=== PATIENT | male | born 1955 | race Caucasian/White ===

== ENCOUNTER 2016-07-15 20:49 | Inpatient (IN) | payer MEDICAID ==
[~2016-07-15] VITALS: Ht 177.8 cm; Wt 81.6 kg
[~2016-07-15 20:49] MED LIST: BUDE10.22 IH; CLOP75TA PO; GABA-586 PO; INSU100V8 SQ; METF-620 PO; METO25TA4 PO; NPH,100I3 SQ; OMEP20CA9 PO; SERT25TA PO; TAMS0.4C97 PO
[2016-07-15 21:06] LABS: BASO # 0.1 x10^3/uL (0.0-0.2); BASO % 1 % (0-3); EOS % 6 % (0-3); HEMATOCRIT 38.5 % (39.0-53.0); HEMOGLOBIN 12.4 g/dL (13.0-17.5); LYMPH # 2.9 x10^3/uL (1.0-4.8); LYMPH % 42 % (24-48); MEAN CORPUSCULAR HEMOGLOBIN 27 pg (25-35); MEAN CORPUSCULAR HGB CONC 32 g/dL (31-37); MEAN CORPUSCULAR VOLUME 83 fL (79-100); MONO % 6 % (0-9); NEUT % 46 % (31-73); PLATELET COUNT 439 x10^3/uL (140-400); RED BLOOD COUNT 4.65 x10^6/uL (4.30-5.70); RED CELL DISTRIBUTION WIDTH 15.7 % (11.5-14.5); WHITE BLOOD COUNT 6.9 x10^3/uL (4.0-11.0)
[2016-07-15 21:23] LABS: ALBUMIN 3.1 g/dL (3.4-5.0); CREATININE 0.9 mg/dL (0.7-1.3); DIRECT BILIRUBIN 0.1 mg/dL (0.0-0.2); GFR 85.8; POTASSIUM 4.1 mmol/L (3.5-5.1); TOTAL BILIRUBIN 0.1 mg/dL (0.2-1.0); TOTAL PROTEIN 7.3 g/dL (6.4-8.2)
[2016-07-15] MEDS ORDERED: MORPHINE SULFATE 4 MG/ML DISP.SYRIN. ONE (21:37)
[2016-07-15] MEDS: MORPHINE SULFATE 4 MG/ML DISP.SYRIN. IV/SQ PRN ×4 (21:40→22:34)
[2016-07-15] MEDS ORDERED: ONDANSETRON PF 4 MG/2 ML VIAL. IV ONE (22:00)
[2016-07-15] MEDS ORDERED: ONDANSETRON PF 4 MG/2 ML VIAL. IV PRN (22:45)
[2016-07-15] MEDS ORDERED: ACETAMINOPHEN 325 MG TABLET. PO PRN (22:45)
[2016-07-15] MEDS ORDERED: DEXTROSE 50% 25 GM / 50ML DISP.SYRIN. IV PRN (22:45)
[2016-07-15] MEDS: MORPHINE SULFATE 4 MG/ML DISP.SYRIN. IV PRN (23:28)
[2016-07-15] MEDS ORDERED: ANTI-COAG MONITOR BY PHARMACY. MC PRN (23:45)
[2016-07-16 00:03] VITALS: BP 124/78
--- NOTE | 2016-07-16 00:09 | ED.ADGEN ---
Past Medical History Past Medical History: CHF, CVA, Diabetes-Type II, Hypertension, [place] Past Surgical History: Angioplasty Additional Past Surgical Histo: Left ankle, exploritory abd, cardiac stent Alcohol Use: None Drug Use: None Adult General Chief Complaint Chief Complaint: CHEST PAIN HPI HPI Patient is a 60 year old man, history of CHF, CAD status post stent placement in 2007, hypertension, hyperlipidemia, type 2 diabetes mellitus, who presents emergency Department with a complaint of sudden onset of left-sided chest pain radiating into his arm and jaw that began about 15 minutes prior to arrival in the emergency department. Patient states that he was shopping in a nearby store , when he began expressing chest pain. He is brought via EMS to the emergency department for evaluation. He states his last stress test and catheterization was 10 years ago. He states that he did take aspirin prior to coming to the ED, he takes a daily 325 mg aspirin, he took additional 4 baby aspirin prior to coming to the ED today. He states that he became "unresponsive" after using nitroglycerin previously and was told that he should not use it in the future. He currently is complaining of 9 out of 10 pain in his chest, described as sharp and a pressure-like sensation, radiating into his arm and jaw. Mild shortness of breath and nausea associated with this discomfort. He denies any recent travel or surgery, any swelling extremities, any missed doses of medication or new medications, and history of DVT or PE, any fevers or chills, any cough, any weakness, numbness, tingling, back pain or flank pain, any urinary complaints, any preceding symptoms. Review of Systems Review of Systems Constitutional: Denies fever or chills. [] Eyes: Denies change in visual acuity. [] HENT: Denies nasal congestion or sore throat. [] Respiratory: Denies cough, shortness of breath associated with chest pain. Cardiovascular: Left-sided chest pain radiating into the left jaw and left arm. No edema. Associated with mild shortness of breath and lightheadedness. GI: Denies abdominal pain, nausea, vomiting, bloody stools or diarrhea. [] : Denies dysuria. [] Musculoskeletal: Denies back pain or joint pain. [] Integument: Denies rash. [] Neurologic: Denies headache, focal weakness or sensory changes. [] Endocrine: Denies polyuria or polydipsia. [] Lymphatic: Denies swollen glands. [] Psychiatric: Denies depression or anxiety. [] Current Medications Current Medications Current Medications Medications (Trade) Dose Ordered Sig/Tamela Start Time Stop Time Status Last Admin Dose Admin Morphine Sulfate 4 mg STK-MED ONCE 07/15/16 21:37 07/15/16 21:38 DC Ondansetron HCl (Zofran) 4 mg 1X ONCE 07/15/16 22:00 07/15/16 22:01 DC 07/15/16 21:56 4 MG Allergies Allergies Allergies Coded Allergies Type Severity Reaction Last Updated Verified Iodinated Contrast Media - Oral and Allergy Severe "Breathing issues" No nitroglycerin Allergy Severe "Pretty much unresponsive right away" 03/05/15 Yes Penicillins Allergy Intermediate Hives 02/18/15 Yes codeine Allergy Intermediate 07/15/16 Yes fentanyl Allergy Intermediate rash 02/18/15 Yes ketorolac Allergy Intermediate 07/15/16 Yes methylprednisolone Allergy Intermediate 07/15/16 Yes Physical Exam Physical Exam Constitutional: Well developed, well nourished, no acute distress, non-toxic appearance. [] HENT: Normocephalic, atraumatic, bilateral external ears normal, oropharynx moist, no oral exudates, nose normal. [] Eyes: PERRLA, EOMI, conjunctiva normal, no discharge. [] Neck: Normal range of motion, no tenderness, supple, no stridor. [] Cardiovascular:Heart rate regular rhythm, no murmur , S1, S2, rubs or gallops. [ ] Lungs & Thorax: Bilateral breath sounds clear to auscultation , no wheezing, rhonchi, rales. No chest wall tenderness or crepitus. Unable to reproduce symptoms with palpation. [] Abdomen: Bowel sounds normal, soft, no tenderness, no rebound, rigidity, no guarding, no masses, no pulsatile masses. [] Skin: Warm, dry, no erythema, no rash. [] Back: No tenderness, no CVA tenderness. [] Extremities: No tenderness, no cyanosis, no clubbing, ROM intact, no edema. Negative Homans sign. [] Neurologic: Alert and oriented X 3, normal motor function, normal sensory function, no focal deficits noted. [] Psychologic: Affect normal, judgement normal, mood normal. [] Current Patient Data Vital Signs Vital Signs Date Time Temp Pulse Resp B/P (MAP) Pulse Ox O2 Delivery O2 Flow Rate FiO2 07/15/16 22:00 86 20 118/61 (80) 95 Room Air 07/15/16 20:53 98.7 98.7 Lab Values Laboratory Tests Test 07/15/16 20:55 White Blood Count 6.9 x10^3/uL (4.0-11.0) Red Blood Count 4.65 x10^6/uL (4.30-5.70) Hemoglobin 12.4 g/dL (13.0-17.5) L Hematocrit 38.5 % (39.0-53.0) L Mean Corpuscular Volume 83 fL (79-100) Mean Corpuscular Hemoglobin 27 pg (25-35) Mean Corpuscular Hemoglobin Concent 32 g/dL (31-37) Red Cell Distribution Width 15.7 % (11.5-14.5) H Platelet Count 439 x10^3/uL (140-400) H Neutrophils (%) (Auto) 46 % (31-73) Lymphocytes (%) (Auto) 42 % (24-48) Monocytes (%) (Auto) 6 % (0-9) Eosinophils (%) (Auto) 6 % (0-3) H Basophils (%) (Auto) 1 % (0-3) Neutrophils # (Auto) 3.1 x10^3uL (1.8-7.7) Lymphocytes # (Auto) 2.9 x10^3/uL (1.0-4.8) Monocytes # (Auto) 0.4 x10^3/uL (0.0-1.1) Eosinophils # (Auto) 0.4 x10^3/uL (0.0-0.7) Basophils # (Auto) 0.1 x10^3/uL (0.0-0.2) Sodium Level 144 mmol/L (136-145) Potassium Level 4.1 mmol/L (3.5-5.1) Chloride Level 106 mmol/L (98-107) Carbon Dioxide Level 28 mmol/L (21-32) Anion Gap 10 (6-14) Blood Urea Nitrogen 7 mg/dL (8-26) L Creatinine 0.9 mg/dL (0.7-1.3) Estimated GFR (Cockcroft-Gault) 85.8 Glucose Level 231 mg/dL (70-99) H Calcium Level 9.0 mg/dL (8.5-10.1) Total Bilirubin 0.1 mg/dL (0.2-1.0) L Direct Bilirubin 0.1 mg/dL (0.0-0.2) Aspartate Amino Transferase (AST) 12 U/L (15-37) L Alanine Aminotransferase (ALT) 20 U/L (16-63) Alkaline Phosphatase 87 U/L (46-116) Troponin I Quantitative < 0.017 ng/mL (0.000-0.055) KY-Nyl-D-Type Natriuretic Peptide 337 pg/mL (0-124) H Total Protein 7.3 g/dL (6.4-8.2) Albumin 3.1 g/dL (3.4-5.0) L Lipase 102 U/L (73-393) Laboratory Tests 07/15/16 20:55 Laboratory Tests 07/15/16 20:55 EKG EKG EC: Sinus rhythm, heart rate 99 bpm, incomplete right bundle-branch block noted, QTc of 460, NM 184, QRS of 86, patient with contour normality is noted in the inferior leads, very mild ST depressions noted in lead 2, also in V6, no significant elevations noted, abnormal ECG, does not meet STEMI criteria , with compared to ECG from 03/05/2015, axis is now normalized, mild depression is new, but contour normality is in the anterior septal leads are consistent. Does not meet STEMI criteria. Pain is a 9 out of 10. EC10/03/49: Sinus rhythm, heart rate 88 bpm, upright axis, QTC of 471, NM of 182, QRS of 86, no significant changes identified, as interpreted by me. Pain is a 9 of 10. ECGs reviewed with of cardiology. Radiology/Procedures Radiology/Procedures Chest x-ray: One view: Straightening left heart border, otherwise normal cardiac silhouette, normal pulmonary silhouette, no infiltrates, effusions, soft tissue or bony abnormalities identified. As interpreted by me. [] Course & Med Decision Making Course & Med Decision Making Pertinent Labs and Imaging studies reviewed. (See chart for details) Patient's history and presentation concerning for acute coronary syndrome. Initial troponin was negative and the emergency department, ECG abnormal, but does not meet STEMI criteria stated, was reviewed with Dr. Patton of cardiology. At this time will administer a single dose of Lovenox to the patient , continue symptomatic management with morphine, as patient has declined nitroglycerin due to reports of previous adverse effects. Patient, as stated, had self-administered full dose aspirin prior to arrival in the department arrival. Repeat ECG did not reveal any new or acute acutely concerning findings. Findings as above were discussed with Dr. Cardona of internal medicine , patient accepted to his service as a full admission to the cardiac telemetry floor with cardiology evaluation, to rule out ACS. Patient transferred to the cardiac telemetry floor without issue. Bridge orders entered per discussion. Dragon Disclaimer Dragon Disclaimer This electronic medical record was generated, in whole or in part, using a voice recognition dictation system. Departure Impression: Primary Impression: Chest pain Disposition: ADMITTED INPATIENT Admitting Physician: Randy Cardona Condition: STABLE ROSEMABLE Schulte DO July 16, 2016 00:09
--- NOTE | 2016-07-16 00:28 | ACF ---
Admit Criteria Forms Admit Criteria Forms Admit Criteria Forms CHEST PAIN Clinical Indications for Admission to Inpatient Care (Place 'X' for any and all applicable criteria): Admission is indicated for chest pain and ANY ONE of the following(1)(2)(3)(4)(5 ): [X ]I. Angina with acute coronary syndrome (Also use Myocardial Infarction or Angina guideline) [ ]II. Hemodynamic instability [ ]III. Angina needing acute intervention as indicated by ALL of the following( 11)(12): [ ]a) Unstable angina is present as indicated by angina that is ANY ONE of the following: [ ]i) New onset [ ]ii) Nocturnal [ ]iii) Prolonged at rest [ ]iv) Progressive [ ]b) Angina warrants acute intervention as indicated by ANY ONE of the following: [ ]i) Recurrent angina (e.g, not responding as previously to treatment) [ ]ii) Angina at rest or with low-level activities despite initial medical therapy [ ]iii) New or presumably new ST-segment depression on ECG [ ]iv) Signs or symptoms of heart failure (eg, dyspnea, pulmonary edema) [ ]v) New or worsening mitral regurgitation [ ]vi) Hemodynamic instability [ ]vii) Dangerous arrhythmia (eg, sustained ventricular tachycardia) [ ]viii) History of percutaneous coronary intervention within 6 months [ ]ix) History of coronary artery bypass graft surgery [ ]x) TANYA risk score of 2 or greater[A] [ ]xi) History of Diabetes(14) [ ]xii) High-risk cardiac ischemia findings on noninvasive testing (e.g, echocardiogram, treadmill testing, nuclear scan) [ ]xiii) Chronic renal insufficiency (ie, estimated GFR less than 60 mL/min/1.732m) [ ]xiv) Left ventricular ejection fraction less than 40% [ ]IV. Evidence of IL (eg, cardiac biomarkers positive, ST-segment elevation on ECG) also use Myocardial Infarction Criteria Form. [ ]V. Pulmonary edema [ ]. Respiratory distress [ ]VII. Chest pain indicative of serious diagnosis other than coronary artery disease (eg, aortic dissection) [ ]VIII. Contraindications and/or Inappropriate clinical situations for Observational Care in patients with Chest Pain, when ANY ONE of the following is required: [ ]a) Patient with risk factor for pulmonary embolism, acute coronary syndrome and myocardial infarction (18) [ ]b) Patient with Pulmonary embolism require an average LOS of 4.3 days, therefore emergency department observation management is inappropriate 18,23 [ ]c) Painful condition/s in the elderly, have the highest rate of recidivism after emergency department observation management (10.8%) 20,21,22 [ ]d) Elevated cardiac biomarker requires intensive and exhaustive care (19) [ ]IX. General contraindications and/or Inappropriate clinical situations for Observational Care in patients with Chest Pain, when ANY ONE of the following is required: [ ]a) Prediction of prolongation of LOS based on ANY ONE of the following may be considered as a contraindication for observational care 2, 3, 4, 5, 6, 7, 8, 9, 10, 11 [ ]i) Age > 65 yrs. [ ]ii) Patient arriving by ambulance [ ]iii) Patient with high acuity [ ]iv) Patient requiring vital sign monitoring [ ]v) Patient on IV medication [ ]b) Systolic blood pressures 180mmHg 3,12 [ ]c) Patient with altered mental status including delirium and other alteration of consciousness, (3) [ ]d) Patient whose discharge disposition will be to a longterm home or rehabilitation home should not be managed in Emergency Department Observation Unit. CMS rule requires 3 days hospital stay before such placement. 3,13 [ ]e) Patient with failure to thrive due to broad array of etiologies 3,16,17 [ ]f) Inability to ambulate 3,14 Extended stay beyond goal length of stay may be needed for (1)(28): [ ]a) Specific condition diagnosed after evaluation (eg, pulmonary embolism, aortic dissection) [ ]b) Unstable angina [ ]c) Continued suspicion of acute coronary syndrome with inability to complete needed cardiac evaluation (eg, patient clinically unable to undergo stress testing) [ ]d) Myocardial infarction (Contents from ANGINA and CHEST PAIN clinical indications for admission to inpatient care have been integrated in this form) The original [employer] content created by [employer] has been revised. The portions of the content which have been revised are identified through the use of italic text or in bold, and [facility] [employer] has neither reviewed nor approved the modified material. All other unmodified content is copyright [employer]. Please see references footnoted in the original [employer] [employer] edition 2016 DANIELLE HANCOCK July 16, 2016 00:28
[2016-07-16] MEDS ORDERED: LISI-338 PO (00:32)
[2016-07-16] MEDS ORDERED: ASPI-482 PO (00:32)
[2016-07-16] MEDS ORDERED: SERT25TA PO (00:32)
[2016-07-16] MEDS: MORPHINE SULFATE 4 MG/ML DISP.SYRIN. IV PRN ×6 (01:22→12:05)
[2016-07-16 03:16] VITALS: BP 122/48
[2016-07-16 04:08] LABS: BASO # 0.1 x10^3/uL (0.0-0.2); BASO % 1 % (0-3); EOS % 6 % (0-3); HEMATOCRIT 36.9 % (39.0-53.0); HEMOGLOBIN 11.8 g/dL (13.0-17.5); LYMPH # 3.1 x10^3/uL (1.0-4.8); LYMPH % 47 % (24-48); MEAN CORPUSCULAR HEMOGLOBIN 26 pg (25-35); MEAN CORPUSCULAR HGB CONC 32 g/dL (31-37); MEAN CORPUSCULAR VOLUME 82 fL (79-100); MONO % 4 % (0-9); NEUT % 41 % (31-73); PLATELET COUNT 452 x10^3/uL (140-400); RED BLOOD COUNT 4.49 x10^6/uL (4.30-5.70); WHITE BLOOD COUNT 6.7 x10^3/uL (4.0-11.0)
[2016-07-16 04:22] LABS: CALCIUM 8.8 mg/dL (8.5-10.1); CREATININE 0.8 mg/dL (0.7-1.3); GFR 98.3; POTASSIUM 4.8 mmol/L (3.5-5.1)
--- NOTE | 2016-07-16 07:05 | EKG ---
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
--- NOTE | 2016-07-16 07:06 | EKG ---
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
[2016-07-16 07:26] VITALS: BP 109/71
--- NOTE | 2016-07-16 07:50 | RAD ---
EXAM: Chest, single view. HISTORY: Chest pain. COMPARISON: 02/23/2015. FINDINGS: A frontal view of the chest is obtained. There is bilateral basilar atelectasis. There is no infiltrate, effusion or pneumothorax. The heart is normal in size. IMPRESSION: Bilateral basilar atelectasis.
[2016-07-16] MEDS: INSULIN ASPART 300 UNITS/3 ML INSULN.PEN SQ SCH ×2 (08:00→12:00)
[2016-07-16 10:26] VITALS: BP 104/67
--- NOTE | 2016-07-16 10:46 | PDOC2 ---
CONSULT Date of Consult Date of Consult DATE: 07/16/16 TIME: 10:46 Reason for Consult Reason for Consult: Chest pain Referring Physician Referring Physician: Dr. Cardona Identification/Chief Complaint Chief Complaint Chest pain Source Source: Chart review, Patient History of Present Illness Reason for Visit: 60-year-old male with history of coronary artery disease s/p PCI/stent in 2007 who usually follows up with Dr. Leal at [facility] presented complaining of left-sided chest pain that started 15 minutes prior to presentation while he was shopping. He described the pain as sharp and pressure- like at the same time and also stated the pain was different than the pain he had prior to his angioplasty. He denied any orthopnea/PND, palpitations or syncope. Past Medical History Cardiovascular: CAD, HTN, Hyperlipidemia Musculoskeletal: low back pain Endocrine: Diabetes Past Surgical History Past Surgical History: Other Family History Family History: Hypertension Social History ALCOHOL: occassional Current Problem List Problem List Problems Medical Problems: (1) Chest pain Status: Acute Current Medications Current Medications Current Medications Morphine Sulfate 4 mg PRN Q15MIN PRN IV/SQ PAIN GREATER THAN 3/10 Last administered on 07/15/16 22:34; Start 07/15/16 at 21:30; Stop 07/16/16 at 21:29 Morphine Sulfate 4 mg STK-MED ONCE .ROUTE ; Start 07/15/16 at 21:37; Stop at 21:38; Status DC Ondansetron HCl (Zofran) 4 mg 1X ONCE IV Last administered on 07/15/16 21:56 ; Start 07/15/16 at 22:00; Stop 07/15/16 at 22:01; Status DC Ondansetron HCl (Zofran) 4 mg PRN Q8HRS PRN IV NAUSEA/VOMITING Last administered on 07/15/16 23:34; Start 07/15/16 at 22:45; Stop 07/16/16 at 22:44 Morphine Sulfate 4 mg PRN Q2HR PRN IV SEVERE PAIN Last administered on 09:36; Start 07/15/16 at 22:45; Stop 07/16/16 at 22:44 Acetaminophen (Tylenol) 650 mg PRN Q4HRS PRN PO FEVER; Start 07/15/16 at 22:45 ; Stop 07/16/16 at 22:44 Insulin Aspart (NovoLOG) 0-5 UNITS TIDWMEALS SQ ; Start 07/16/16 at 08:00 Dextrose (Dextrose 50%-Water Syringe) 12.5 gm PRN Q15MIN PRN IV SEE COMMENTS; Start 07/15/16 at 22:45 Enoxaparin Sodium (Lovenox Per Pharmacy Treatment Dosing) 1 each PRN DAILY PRN MC DVT TREATMENT; Start 07/15/16 at 23:30 Enoxaparin Sodium (Lovenox 80mg Syringe) 80 mg Q12HR SQ Last administered on 08:52; Start 07/15/16 at 23:45 Info (Anti-Coagulation Monitoring By Pharmacy) 1 each PRN DAILY PRN MC SEE COMMENTS Last administered on 07/16/16 00:55; Start 07/15/16 at 23:45 Active Scripts Active Reported Lisinopril 5 Mg Tablet 5 Mg PO DAILY Aspir 81 (Aspirin) 81 Mg Tablet.dr 1 Tab PO DAILY Zoloft (Sertraline Hcl) 25 Mg Tablet 25 Mg PO DAILY Clopidogrel (Clopidogrel Bisulfate) 75 Mg Tablet 1 Tab PO DAILY Symbicort 80-4.5 Mcg Inhaler (Budesonide/Formoterol Fumarate) 10.2 Gm Hfa.aer.ad 2 Puff IH BID Lantus (Insulin Glargine,Hum.rec.anlog) 100 Unit/1 Ml Vial 45 Unit SQ HS Humulin N Kwikpen (Nph, Human Insulin Isophane) 100 Unit/1 Ml Insuln.pen 10 Unit SQ TIDAC Metoprolol Tartrate 25 Mg Tablet 25 Mg PO BID Gabapentin 300 Mg Capsule 300 Mg PO Q6HRS Flomax (Tamsulosin Hcl) 0.4 Mg Cap.er.24h 0.4 Mg PO QHS Metformin Hcl 1,000 Mg Tablet 1,000 Mg PO BIDWMEALS Allergies Allergies: Coded Allergies: Iodinated Contrast Media - Oral and (Unverified Allergy, Severe, "Breathing issues", 02/18/15) nitroglycerin (Verified Allergy, Severe, "Pretty much unresponsive right away", 03/05/15) Low blood pressure Penicillins (Verified Allergy, Intermediate, Hives , 02/18/15) codeine (Verified Allergy, Intermediate, 07/15/16) fentanyl (Verified Allergy, Intermediate, rash, 02/18/15) ketorolac (Verified Allergy, Intermediate, 07/15/16) methylprednisolone (Verified Allergy, Intermediate, 07/15/16) ROS PSYCHOLOGICAL ROS: No: Hallucinations Eyes: No Loss of vision HEENT: No: Epistaxis ENDOCRINE: No: Palpitations Respiratory: YES: Shortness of breath, No: Hemoptysis Cardiovascular: yes Chest Pain Gastrointestinal: No Vomiting, No Diarrhea Genitourinary: No Hematuria Neurological: No Seizures Skin: No Rash Physical Exam General: Alert, Oriented X3 HEENT: Atraumatic, PERRLA Lungs: Clear to auscultation Heart: Regular rate, No murmurs Abdomen: Soft, No tenderness Extremities: No edema Psych/Mental Status: Mood NL Vitals VITALS Vital Signs Date Time Temp Pulse Resp B/P (MAP) Pulse Ox O2 Delivery O2 Flow Rate FiO2 07/16/16 10:26 98.1 84 19 104/67 (79) 90 Room Air 98.1 07/16/16 09:36 2.0 Labs Labs Laboratory Tests Test 07/15/16 20:55 07/16/16 03:30 07/16/16 05:42 07/16/16 07:29 White Blood Count 6.9 x10^3/uL (4.0-11.0) 6.7 x10^3/uL (4.0-11.0) Red Blood Count 4.65 x10^6/uL (4.30-5.70) 4.49 x10^6/uL (4.30-5.70) Hemoglobin 12.4 g/dL (13.0-17.5) 11.8 g/dL (13.0-17.5) Hematocrit 38.5 % (39.0-53.0) 36.9 % (39.0-53.0) Mean Corpuscular Volume 83 fL (79-100) 82 fL (79-100) Mean Corpuscular Hemoglobin 27 pg (25-35) 26 pg (25-35) Mean Corpuscular Hemoglobin Concent 32 g/dL (31-37) 32 g/dL (31-37) Red Cell Distribution Width 15.7 % (11.5-14.5) 16.0 % (11.5-14.5) Platelet Count 439 x10^3/uL (140-400) 452 x10^3/uL (140-400) Neutrophils (%) (Auto) 46 % (31-73) 41 % (31-73) Lymphocytes (%) (Auto) 42 % (24-48) 47 % (24-48) Monocytes (%) (Auto) 6 % (0-9) 4 % (0-9) Eosinophils (%) (Auto) 6 % (0-3) 6 % (0-3) Basophils (%) (Auto) 1 % (0-3) 1 % (0-3) Neutrophils # (Auto) 3.1 x10^3uL (1.8-7.7) 2.8 x10^3uL (1.8-7.7) Lymphocytes # (Auto) 2.9 x10^3/uL (1.0-4.8) 3.1 x10^3/uL (1.0-4.8) Monocytes # (Auto) 0.4 x10^3/uL (0.0-1.1) 0.3 x10^3/uL (0.0-1.1) Eosinophils # (Auto) 0.4 x10^3/uL (0.0-0.7) 0.4 x10^3/uL (0.0-0.7) Basophils # (Auto) 0.1 x10^3/uL (0.0-0.2) 0.1 x10^3/uL (0.0-0.2) Sodium Level 144 mmol/L (136-145) 147 mmol/L (136-145) Potassium Level 4.1 mmol/L (3.5-5.1) 4.8 mmol/L (3.5-5.1) Chloride Level 106 mmol/L (98-107) 110 mmol/L (98-107) Carbon Dioxide Level 28 mmol/L (21-32) 29 mmol/L (21-32) Anion Gap 10 (6-14) 8 (6-14) Blood Urea Nitrogen 7 mg/dL (8-26) 7 mg/dL (8-26) Creatinine 0.9 mg/dL (0.7-1.3) 0.8 mg/dL (0.7-1.3) Estimated GFR (Cockcroft-Gault) 85.8 98.3 Glucose Level 231 mg/dL (70-99) 66 mg/dL (70-99) Calcium Level 9.0 mg/dL (8.5-10.1) 8.8 mg/dL (8.5-10.1) Total Bilirubin 0.1 mg/dL (0.2-1.0) Direct Bilirubin 0.1 mg/dL (0.0-0.2) Aspartate Amino Transf (AST/SGOT) 12 U/L (15-37) Alanine Aminotransferase (ALT/SGPT) 20 U/L (16-63) Alkaline Phosphatase 87 U/L (46-116) Troponin I Quantitative < 0.017 ng/mL (0.000-0.055) 0.021 ng/mL (0.000-0.055) RJ-Xys-P-Type Natriuretic Peptide 337 pg/mL (0-124) Total Protein 7.3 g/dL (6.4-8.2) Albumin 3.1 g/dL (3.4-5.0) Lipase 102 U/L (73-393) Glucose (Fingerstick) 88 mg/dL (70-99) 70 mg/dL (70-99) Test 07/16/16 09:00 Troponin I Quantitative 0.026 ng/mL (0.000-0.055) Laboratory Tests Test 07/15/16 20:55 07/16/16 03:30 07/16/16 05:42 07/16/16 07:29 White Blood Count 6.9 x10^3/uL (4.0-11.0) 6.7 x10^3/uL (4.0-11.0) Red Blood Count 4.65 x10^6/uL (4.30-5.70) 4.49 x10^6/uL (4.30-5.70) Hemoglobin 12.4 g/dL (13.0-17.5) 11.8 g/dL (13.0-17.5) Hematocrit 38.5 % (39.0-53.0) 36.9 % (39.0-53.0) Mean Corpuscular Volume 83 fL (79-100) 82 fL (79-100) Mean Corpuscular Hemoglobin 27 pg (25-35) 26 pg (25-35) Mean Corpuscular Hemoglobin Concent 32 g/dL (31-37) 32 g/dL (31-37) Red Cell Distribution Width 15.7 % (11.5-14.5) 16.0 % (11.5-14.5) Platelet Count 439 x10^3/uL (140-400) 452 x10^3/uL (140-400) Neutrophils (%) (Auto) 46 % (31-73) 41 % (31-73) Lymphocytes (%) (Auto) 42 % (24-48) 47 % (24-48) Monocytes (%) (Auto) 6 % (0-9) 4 % (0-9) Eosinophils (%) (Auto) 6 % (0-3) 6 % (0-3) Basophils (%) (Auto) 1 % (0-3) 1 % (0-3) Neutrophils # (Auto) 3.1 x10^3uL (1.8-7.7) 2.8 x10^3uL (1.8-7.7) Lymphocytes # (Auto) 2.9 x10^3/uL (1.0-4.8) 3.1 x10^3/uL (1.0-4.8) Monocytes # (Auto) 0.4 x10^3/uL (0.0-1.1) 0.3 x10^3/uL (0.0-1.1) Eosinophils # (Auto) 0.4 x10^3/uL (0.0-0.7) 0.4 x10^3/uL (0.0-0.7) Basophils # (Auto) 0.1 x10^3/uL (0.0-0.2) 0.1 x10^3/uL (0.0-0.2) Sodium Level 144 mmol/L (136-145) 147 mmol/L (136-145) Potassium Level 4.1 mmol/L (3.5-5.1) 4.8 mmol/L (3.5-5.1) Chloride Level 106 mmol/L (98-107) 110 mmol/L (98-107) Carbon Dioxide Level 28 mmol/L (21-32) 29 mmol/L (21-32) Anion Gap 10 (6-14) 8 (6-14) Blood Urea Nitrogen 7 mg/dL (8-26) 7 mg/dL (8-26) Creatinine 0.9 mg/dL (0.7-1.3) 0.8 mg/dL (0.7-1.3) Estimated GFR (Cockcroft-Gault) 85.8 98.3 Glucose Level 231 mg/dL (70-99) 66 mg/dL (70-99) Calcium Level 9.0 mg/dL (8.5-10.1) 8.8 mg/dL (8.5-10.1) Total Bilirubin 0.1 mg/dL (0.2-1.0) Direct Bilirubin 0.1 mg/dL (0.0-0.2) Aspartate Amino Transf (AST/SGOT) 12 U/L (15-37) Alanine Aminotransferase (ALT/SGPT) 20 U/L (16-63) Alkaline Phosphatase 87 U/L (46-116) Troponin I Quantitative < 0.017 ng/mL (0.000-0.055) 0.021 ng/mL (0.000-0.055) NF-Pas-J-Type Natriuretic Peptide 337 pg/mL (0-124) Total Protein 7.3 g/dL (6.4-8.2) Albumin 3.1 g/dL (3.4-5.0) Lipase 102 U/L (73-393) Glucose (Fingerstick) 88 mg/dL (70-99) 70 mg/dL (70-99) Test 07/16/16 09:00 Troponin I Quantitative 0.026 ng/mL (0.000-0.055) Assessment/Plan Assessment/Plan 1. Chest pain with atypical features: EKG without acute changes. Patient has history of coronary artery disease and has undergone stent placement in 2007. He stated that he has seen his primary employee development manager at [facility] recently. We will obtain medical records. He will benefit from Lexiscan nuclear stress test to rule out ischemic etiology if this has not been done recently - he could get this done as an outpatient. 2. Hypertension: Controlled 3. Diabetes mellitus type 2: Treat per IM Thank you for your consultation AMANDA LOPES MD July 16, 2016 10:46
--- NOTE | 2016-07-16 13:32 | SSS ---
ADMIT DATE: 07/16/2016 CHIEF COMPLAINT: Chest pain. HISTORY OF PRESENT ILLNESS: The patient is a pleasant 60-year-old male with known coronary artery disease. He has got two previous stents in 2007. He present today with chest pain, rated 7/10. He has got associated weakness. He has now been admitted to telemetry floor, was consulted Dr. Patton. 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 PAST MEDICAL HISTORY: Coronary artery disease, previous stents, stroke, CHF, diabetes, hyperlipidemia, hypertension, left ankle surgery, exploratory abdominal surgery. ALLERGIES: IODINE, PENICILLIN, CODEINE, FENTANYL, , METHYLPREDNISONE AND NITRO. FAMILY HISTORY: Coronary artery disease. SOCIAL HISTORY: He does not drink, smoke or take drugs. MEDICATIONS: Reviewed, please refer to the MRAD. REVIEW OF SYSTEMS: GENERAL: No history of weight change, weakness or fevers. SKIN: No bruising, hair changes or rashes. EYES: No blurred, double or loss of vision. NOSE AND THROAT: No history of nosebleeds, hoarseness or sore throat. HEART: No history of palpitations, chest pain or shortness of breath on exertion. LUNGS: Denies cough, hemoptysis, wheezing or shortness of breath. GASTROINTESTINAL: Denies changes in appetite, nausea, vomiting, diarrhea or constipation. GENITOURINARY: No history of frequency, urgency, hesitancy or nocturia. NEUROLOGIC: Denies history of numbness, tingling, tremor or weakness. PSYCHIATRIC: No history of panic, anxiety or depression. ENDOCRINE: No history of heat or cold intolerance, polyuria or polydipsia. EXTREMITIES: Denies muscle weakness, joint pain, pain on walking or stiffness. PHYSICAL EXAMINATION: VITAL SIGNS: Temperature afebrile, pulse 62, respirations 18, blood pressure 104/67. GENERAL: He is alert, cooperative. HEART: Normal S1, S2. LUNGS: Clear. ABDOMEN: Soft, positive bowel sounds, obese. EXTREMITIES: 1+ edema. SKIN: No rashes. PSYCHIATRIC: He is stable. VASCULAR: Good capillary refill. ENDOCRINE: No thyromegaly. LYMPHATICS: No cervical nodes. HEMATOPOIETIC: No bruising. LABORATORY DATA: White count 6.9, hemoglobin 12, platelets 439. Electrolytes pending. Troponin 0.026. ASSESSMENT AND PLAN: Chest pain with known coronary artery disease, suspect reflux versus possible mild angina. Clinically, the patient is doing well. Agree with Dr. Patton, he could probably go home. We will have him see his doctor in a week. DISPOSITION: Home. ACTIVITY: As tolerated. DIET: Low sodium. MEDICATIONS: Please see the MRAD. TOTAL TIME: 31 minutes. FOSTER PUGH DO DR: GEGE/heather JOB#: [id number] / [id number]
== END 2016-07-16 13:00 | disposition home or self-care (01) | DRG 392 ==
LOC: ER 20:57 → 2 SOUTH 22:23
PROVIDERS: ADMIT Internal Medicine; ATTEND Internal Medicine
DX: K21.9 Gastro-esophageal reflux disease without esophagitis (principal); E44.0 Moderate protein-calorie malnutrition; I25.119 Atherosclerotic heart disease of native coronary artery with unspecified angina pectoris; E11.9 Type 2 diabetes mellitus without complications; I11.0 Hypertensive heart disease with heart failure; I50.9 Heart failure, unspecified; E78.5 Hyperlipidemia, unspecified; Z79.82 Long term (current) use of aspirin; Z82.49 Family history of ischemic heart disease and other diseases of the circulatory system; Z86.73 Personal history of transient ischemic attack (TIA), and cerebral infarction without residual deficits; Z95.5 Presence of coronary angioplasty implant and graft; Z88.0 Allergy status to penicillin; Z88.8 Allergy status to other drugs, medicaments and biological substances; Z88.5 Allergy status to narcotic agent
CPT/HCPCS: 36415; 71010; 80048; 80076; 82962; 83690; 83880; 84484; 85027; 93005; 96374; 96375; 96376; J1650; J1815; J2270; J2405; 99285-25

== ENCOUNTER 2016-08-10 20:18 | Inpatient (IN) | payer MEDICAID ==
[~2016-08-10] VITALS: Ht 177.8 cm; Wt 81.2 kg
[~2016-08-10 20:18] MED LIST changes: +ASPI-482 PO; +LISI-338 PO
[2016-08-10] MEDS ORDERED: ONDANSETRON PF 4 MG/2 ML VIAL. IV ONE (20:45)
[2016-08-10] MEDS: MORPHINE SULFATE 2 MG/ML DISP.SYRIN. IV/SQ PRN ×4 (21:03→22:45)
[2016-08-10 21:15] LABS: BASO % 0 % (0-3); EOS % 9 % (0-3); HEMATOCRIT 37.4 % (39.0-53.0); HEMOGLOBIN 12.5 g/dL (13.0-17.5); LYMPH # 3.2 x10^3/uL (1.0-4.8); LYMPH % 38 % (24-48); MEAN CORPUSCULAR HEMOGLOBIN 27 pg (25-35); MEAN CORPUSCULAR HGB CONC 33 g/dL (31-37); MEAN CORPUSCULAR VOLUME 80 fL (79-100); MONO % 6 % (0-9); NEUT % 47 % (31-73); PLATELET COUNT 368 x10^3/uL (140-400); RED BLOOD COUNT 4.71 x10^6/uL (4.30-5.70); RED CELL DISTRIBUTION WIDTH 16.4 % (11.5-14.5); WHITE BLOOD COUNT 8.3 x10^3/uL (4.0-11.0)
[2016-08-10 21:19] LABS: ANION GAP 10 (6-14); BLOOD UREA NITROGEN 10 mg/dL (8-26); CARBON DIOXIDE 28 mmol/L (21-32); CHLORIDE 102 mmol/L (98-107); CREATININE 0.8 mg/dL (0.7-1.3); GFR 98.3; GLUCOSE 189 mg/dL (70-99); POTASSIUM 4.1 mmol/L (3.5-5.1); SODIUM 140 mmol/L (136-145)
[2016-08-10 21:26] LABS: ALBUMIN 3.5 g/dL (3.4-5.0); ALK PHOS 91 U/L (46-116); ALT (SGPT) 21 U/L (16-63); AST (SGOT) 15 U/L (15-37); DIRECT BILIRUBIN < 0.1 mg/dL (0.0-0.2); MAGNESIUM 1.6 mg/dL (1.8-2.4); PROTHROMBIN TIME PATIENT 12.7 SEC (11.7-14.0); TOTAL BILIRUBIN 0.2 mg/dL (0.2-1.0); TOTAL PROTEIN 7.3 g/dL (6.4-8.2)
[2016-08-10 21:38] LABS: CKMB MASS 2.9 ng/mL (0.0-3.6)
--- NOTE | 2016-08-10 21:54 | PHYS DOC ---
Past Medical History Past Medical History: CHF, CVA, Diabetes-Type II, Hypertension, [place] Past Surgical History: Angioplasty Additional Past Surgical Histo: Left ankle, exploritory abd, cardiac stent Additional Information: PIPE TOBACCO Alcohol Use: None Drug Use: None Adult General Chief Complaint Chief Complaint: CHEST PAIN HPI HPI Patient is a 60 year old male who presents with the complaint of abdominal pain since about 7:30 PM. Pain is on the left side of the patient's chest and he believes it feels like his heart. It's a pressure type feeling. He took 4 chewable aspirin at home. The pain has not improved. He does not have nitroglycerin at home because "it makes me unresponsive". Patient states he has had an [place] and has had a stent. His last catheter was done in [place]. Patient's motor teacher is Dr. Leal at [facility]. [place] used to live on the [place] side but recently moved to this area. PCP Dr. Kelley Review of Systems Review of Systems Constitutional: Denies fever or chills [] Eyes: Denies change in visual acuity, redness, or eye pain [] HENT: Denies nasal congestion or sore throat [] Respiratory: Denies cough or shortness of breath [] Cardiovascular: As in history of present illness GI: Denies abdominal pain, nausea, vomiting, bloody stools or diarrhea [] : Denies dysuria or hematuria [] Musculoskeletal: Denies back pain or joint pain [] Integument: Denies rash or skin lesions [] Neurologic: Denies headache, focal weakness or sensory changes [] Current Medications Current Medications Current Medications Medications (Trade) Dose Ordered Sig/Tamela Start Time Stop Time Status Last Admin Dose Admin Acetaminophen (Tylenol) 650 mg PRN Q6HRS PRN 08/10/16 22:00 Al Hydroxide/Mg Hydroxide (Mylanta Plus Xs) 30 ml PRN Q3HRS PRN 08/10/16 22:00 Aspirin (Ecotrin) 81 mg DAILY 08/11/16 09:00 UNV Bisacodyl (Dulcolax Supp) 10 mg PRN DAILY PRN 08/10/16 22:00 Calcium Carbonate/ Glycine (Tums) 500 mg PRN Q3HRS PRN 08/10/16 22:00 Clopidogrel Bisulfate (Plavix) 75 mg DAILY 08/11/16 09:00 Dextrose (Dextrose 50%-Water Syringe) 12.5 gm PRN Q15MIN PRN 08/10/16 22:00 Docusate Sodium (Colace) 100 mg BID 08/11/16 09:00 UNV Insulin Aspart (NovoLOG) 0-9 UNITS TIDWMEALS 08/11/16 08:00 UNV Insulin Detemir (Levemir) 45 units HS 08/10/16 22:45 08/10/16 22:49 45 UNITS Lactulose 20 gm PRN Q12HR PRN 08/10/16 22:00 Lisinopril (Prinivil) 5 mg DAILY 08/11/16 09:00 UNV Magnesium Hydroxide (Milk Of Magnesia) 2,400 mg PRN Q12HR PRN 08/10/16 22:00 Magnesium Sulfate/ Dextrose 50 ml @ 25 mls/hr 1X ONCE 08/10/16 22:00 08/10/16 23:59 08/10/16 22:21 25 MLS/HR Metformin HCl (Glucophage) 1,000 mg BIDWMEALS 08/11/16 08:00 UNV Metoprolol Tartrate (Lopressor) 25 mg BID 08/10/16 22:15 Morphine Sulfate 4 mg 1X ONCE 08/10/16 23:15 08/10/16 23:16 UNV Non-Formulary Medication 10 unit TIDAC 08/11/16 07:30 UNV Ondansetron HCl (Zofran) 4 mg PRN Q6HRS PRN 08/10/16 22:00 Oxycodone/ Acetaminophen (Percocet 5/325) 1 tab PRN Q4HRS PRN 08/10/16 22:00 Prochlorperazine (Compazine) 25 mg PRN Q12HR PRN 08/10/16 22:00 Prochlorperazine Edisylate (Compazine) 10 mg PRN Q6HRS PRN 08/10/16 22:00 Sertraline HCl (Zoloft) 25 mg DAILY 08/11/16 09:00 UNV Tamsulosin HCl (Flomax) 0.4 mg QHS 08/10/16 22:15 08/10/16 22:16 0.4 MG Allergies Allergies Allergies Coded Allergies Type Severity Reaction Last Updated Verified Iodinated Contrast- Oral and IV Dye Allergy Severe "Breathing issues" No nitroglycerin Allergy Severe "Pretty much unresponsive right away" 03/05/15 Yes Penicillins Allergy Intermediate Hives 02/18/15 Yes codeine Allergy Intermediate 07/15/16 Yes fentanyl Allergy Intermediate rash 02/18/15 Yes ketorolac Allergy Intermediate 07/15/16 Yes methylprednisolone Allergy Intermediate 07/15/16 Yes Physical Exam Physical Exam Constitutional: Well developed, well nourished, alert, mentating normally, no acute distress, warm and dry HENT: Normocephalic, atraumatic, bilateral external ears normal, nose normal. [ ] Eyes: conjunctiva normal, no discharge. [] Neck: Normal range of motion, no stridor. [] Cardiovascular:Heart rate regular rhythm, no murmur [] Lungs & Thorax: Bilateral breath sounds clear to auscultation [] Abdomen: Bowel sounds normal, soft, no tenderness, no masses, no pulsatile masses. [] Skin: Warm, dry, no erythema, no rash. [] Extremities: No tenderness, no cyanosis, no clubbing, ROM intact, no edema. [] Neurologic: Alert and oriented X 3, normal motor function, normal sensory function, no focal deficits noted. [] Current Patient Data Vital Signs Vital Signs Date Time Temp Pulse Resp B/P (MAP) Pulse Ox O2 Delivery O2 Flow Rate FiO2 08/10/16 20:39 98.2 86 24 137/70 (92) 96 Room Air 98.2 Lab Values Laboratory Tests Test 08/10/16 20:50 08/10/16 20:55 White Blood Count 8.3 x10^3/uL (4.0-11.0) Red Blood Count 4.71 x10^6/uL (4.30-5.70) Hemoglobin 12.5 g/dL (13.0-17.5) L Hematocrit 37.4 % (39.0-53.0) L Mean Corpuscular Volume 80 fL (79-100) Mean Corpuscular Hemoglobin 27 pg (25-35) Mean Corpuscular Hemoglobin Concent 33 g/dL (31-37) Red Cell Distribution Width 16.4 % (11.5-14.5) H Platelet Count 368 x10^3/uL (140-400) Neutrophils (%) (Auto) 47 % (31-73) Lymphocytes (%) (Auto) 38 % (24-48) Monocytes (%) (Auto) 6 % (0-9) Eosinophils (%) (Auto) 9 % (0-3) H Basophils (%) (Auto) 0 % (0-3) Neutrophils # (Auto) 3.9 x10^3uL (1.8-7.7) Lymphocytes # (Auto) 3.2 x10^3/uL (1.0-4.8) Monocytes # (Auto) 0.5 x10^3/uL (0.0-1.1) Eosinophils # (Auto) 0.7 x10^3/uL (0.0-0.7) Basophils # (Auto) 0.0 x10^3/uL (0.0-0.2) Prothrombin Time 12.7 SEC (11.7-14.0) Prothrombin Time INR 1.0 (0.8-1.1) Sodium Level 140 mmol/L (136-145) Potassium Level 4.1 mmol/L (3.5-5.1) Chloride Level 102 mmol/L (98-107) Carbon Dioxide Level 28 mmol/L (21-32) Anion Gap 10 (6-14) Blood Urea Nitrogen 10 mg/dL (8-26) Creatinine 0.8 mg/dL (0.7-1.3) Estimated GFR (Cockcroft-Gault) 98.3 Glucose Level 189 mg/dL (70-99) H Calcium Level 9.0 mg/dL (8.5-10.1) Magnesium Level 1.6 mg/dL (1.8-2.4) L Total Bilirubin 0.2 mg/dL (0.2-1.0) Direct Bilirubin < 0.1 mg/dL (0.0-0.2) Aspartate Amino Transferase (AST) 15 U/L (15-37) Alanine Aminotransferase (ALT) 21 U/L (16-63) Alkaline Phosphatase 91 U/L (46-116) Creatine Kinase 93 U/L (39-308) Creatine Kinase MB (Mass) 2.9 ng/mL (0.0-3.6) Creatine Kinase MB Relative Index 3.1 % (0-4) Troponin I Quantitative < 0.017 ng/mL (0.000-0.055) OG-Zic-H-Type Natriuretic Peptide 419 pg/mL (0-124) H Total Protein 7.3 g/dL (6.4-8.2) Albumin 3.5 g/dL (3.4-5.0) POC Troponin I 0.01 ng/ml (<0.08) Laboratory Tests 08/10/16 20:50 Laboratory Tests 08/10/16 20:50 EKG EKG 12-lead EKG read by me. Sinus rhythm. Heart rate 83. There is lateral T-wave inversion in V6. There are no acute ST elevations or depressions. No STEMI. Possible lateral ischemia. 2027 Repeat 12-lead EKG done for continued chest pain. Sinus rhythm. Heart rate 80. The previous T-wave inversion in V6 is now gone, T waves are upright in V6. There are no ST elevations or depressions. No STEMI. 2217[] Radiology/Procedures Radiology/Procedures One view portable chest x-ray read by me. No acute cardiopulmonary abnormality. [] Course & Med Decision Making Course & Med Decision Making Pertinent Labs and Imaging studies reviewed. (See chart for details) 60-year-old male with a cardiac history presents with that episode of left- sided chest pain. The patient is adamant that he cannot take nitroglycerin "it made me go unresponsive". He states that his blood pressure did not drop but he became unresponsive and had to be moved to the ICU. Initial EKG concerning for lateral ischemia but no STEMI. I-STAT troponin was done and was negative. Patient's pain was treated with IV morphine. Labs unremarkable for acute findings. Patient appeared comfortable in the ED, vitals within normal limits, no diaphoresis, color good, but did continue to complain of left-sided chest pain. He was given several doses of IV morphine with some improvement. He ambulated to the bathroom without difficulty. At this point, I don't believe the patient is having a STEMI, we have done 2 EKGs, and initial troponin is negative. However, he does have a significant cardiac history and he needs to be ruled out and may need further evaluation. I discussed the case with Dr. Dumont content editor for Dr. Kelley. She will admit the patient to his service. I wrote bridge orders. The patient is stable and initial troponin is negative. [] Dragon Disclaimer Dragon Disclaimer This electronic medical record was generated, in whole or in part, using a voice recognition dictation system. Departure Departure Impression: Primary Impression: Chest pain Disposition: 09 ADMITTED INPATIENT Admitting Physician: Kellie Vargas Condition: STABLE Referrals: UNKNOWN PCP NAME (PCP) ASAF GROSSMAN MD Aug 10, 2016 21:54
[2016-08-10] MEDS ORDERED: BISACODYL 10 MG SUPP.RECT. PR PRN (22:00)
[2016-08-10] MEDS ORDERED: ACETAMINOPHEN 325 MG TABLET. PO PRN (22:00)
[2016-08-10] MEDS ORDERED: MORPHINE SULFATE 2 MG/ML DISP.SYRIN. IV PRN (22:00)
[2016-08-10] MEDS ORDERED: LACTULOSE 20 GM/30 ML SOLUTION. PO PRN (22:00)
[2016-08-10] MEDS ORDERED: oxyCODONE/APAP 5/325 1 TAB TABLET PO PRN (22:00)
[2016-08-10] MEDS ORDERED: MAGNESIUM HYDROXIDE 2,400 MG/30 ML ORAL.SUSP. PO PRN (22:00)
[2016-08-10] MEDS ORDERED: ONDANSETRON PF 4 MG/2 ML VIAL. IV PRN (22:00)
[2016-08-10] MEDS ORDERED: PROCHLORPERAZINE 25 MG SUPP.RECT. PR PRN (22:00)
[2016-08-10] MEDS ORDERED: DEXTROSE 50% 25 GM / 50ML DISP.SYRIN. IV PRN (22:00)
[2016-08-10] MEDS ORDERED: MAG HYDROX/ALUMINUM HYD/SIMETH 30 ML ORAL.SUSP PO PRN (22:00)
[2016-08-10] MEDS ORDERED: CALCIUM CARBONATE 500 MG TAB.CHEW PO PRN (22:00)
[2016-08-10] MEDS ORDERED: MAGNESIUM SULFATE 2GM 50 ML IV ONE (22:00)
[2016-08-10] MEDS ORDERED: PROCHLORPERAZINE 10 MG/2 ML VIAL. IV PRN (22:00)
[2016-08-10] MEDS ORDERED: TAMSULOSIN 0.4 MG CAP.ER.24H. PO SCH (22:15)
[2016-08-10] MEDS ORDERED: METOPROLOL TART IMMED RELEASE 25 MG TABLET. PO SCH (22:15)
[2016-08-10] MEDS ORDERED: INSULIN DETEMIR 300 UNITS/3 ML INSULN.PEN. SQ SCH (22:45)
[2016-08-10] MEDS ORDERED: LISI10TA2 PO (22:59)
[2016-08-10] MEDS ORDERED: MORPHINE SULFATE 10 MG/ML VIAL. ONE (23:35)
[2016-08-10] MEDS ORDERED: MORPHINE SULFATE 4 MG/ML DISP.SYRIN. IV ONE (23:45)
[2016-08-11] VITALS: BP 122/61
[2016-08-11] MEDS ORDERED: GABAPENTIN 300 MG CAPSULE. PO SCH
--- NOTE | 2016-08-11 00:15 | ACF ---
Admission Forms Criteria CARDIOLOGY GRG Clinical Indications for Admission to Inpatient Care ( Place 'X' for any and all applicable criteria): Hospital admission is needed for appropriate care of the patient because of ANY ONE of the following (1): [ ] I. Hemodynamic instability as indicated by ALL of the following (1)(2)(3) (4)(5) [ ]a) Vital signs or other findings not as expected for chronic patient condition or baseline [ ]b) Instability indicated by ANY ONE of the following: [ ]i) Hypotension [ ]ii) Symptomatic Tachycardia unresponsive to treatment ( e.g., analgesia, fluids, sedation as indicated) [ ]iii) Inadequate perfusion indicated by ANY ONE of the following: [ ] 1) Lactic acidosis (> 2 mmol/L) [ ] 2) New abnormal capillary refill (> 3 seconds) [ ] 3) Reduced urine output [ ] 4) New altered mental status [ ]iv) Orthostatic vital sign changes unresponsive to treatment (e.g., fluids) [ ]v) IV inotropic or vasopressor medication required to maintain adequate blood pressure or perfusion [ ] II. Severe heart failure as indicated by ANY ONE of the following(17)(18) [ ]a) Respiratory distress [ ]b) Hypotension [ ]c) Anasarca (refractory to outpatient therapy) [ ]d) Cardiac arrhythmias of immediate concern [ ]e) Myocardial ischemia [ ] III. Cardiac arrhythmias or findings of immediate concern indicated by ANY ONE of the following (19)(20): [ ] a) Heart rhythms that are inherently dangerous or unstable indicated by ANY ONE of the following (21)(22)(23): [ ] i) Resuscitated ventricular fibrillation or cardiac arrest [ ] ii) Ventricular escape rhythm [ ] iii) Sustained ventricular tachycardia (30 seconds or more of ventricular rhythm at greater than 100 beats per minute) [ ] iv) Nonsustained ventricular tachycardia and ANY ONE of the following: [ ] 1) Suspected cardiac ischemia as cause or consequence of ventricular tachycardia [ ] 2) In setting of acute myocarditis [ ] b) Unstable cardiac conduction defects indicated by ANY ONE of the following(23)(24)(25) [ ] i) Type II second-degree atrioventricular block [ ]ii) Third-degree atrioventricular block [ ]iii) New-onset left bundle branch block with suspected myocardial ischemia [ ]c) Any heart rhythm and ANY ONE of the following (21)(22)(26)(27) (28) [ ] i) Continuous long-term ECG monitoring needed (e.g., initiation of drug requiring monitoring for more than 24 hours) [ ] ii) Patient has automatic implanted cardioverter defibrillator that is repeatedly firing, malfunctioning, or in need of immediate adjustment of settings beyond the scope of ambulatory or observation care [ ]d) Heart rhythms of concern due to ANY ONE of the following: [ ] i) Hypotension [ ] ii) Respiratory distress [ ] iii) Association with other significant symptoms (e.g., bradycardia with syncope or ongoing dizziness, supraventricular tachycardia with chest pain (14)(15)(17) [ ] IV. Monitoring for cardiac contusion beyond the scope of observation care needed [A](30)(31)(32) [ ] V. Surgical or device complication (e.g., valve replacement complication , pacemaker dysfunction) (35)(41)(44)(45)(46) [ ] . Inpatient palliative care needed. [B](49) Also use Inpatient Palliative Care Criteria [ ] VII. Nonbacterial thrombotic (marantic) endocarditis (36)(43)(47)(48) [X] VIII. Cardiology condition, symptom, or finding for which emergency and observation care has failed or are not considered appropriate. [ ] IX. Acute valvular disease requiring inpatient as indicated by ANY ONE of the following (41) [ ]a) Acute valvular regurgitation (42) [ ]b) Noninfectious valvulitis (43) [ ]c) Obstructive valve thrombosis [ ]d) Paravalvular leak [ ]e) Other significant valvular disorder remaining after emergency or observation level of care (as appropriate) [ ]X. Pericardial disease requiring inpatient treatment as indicated by ANY ONE of the following (33)(34)(35)(36)(37) [ ]a) Suspected tamponade (38)(39)(40) [ ]b) Hemopericardium [ ]c) Other significant pericardial disorder remaining after emergency or observation level of care (as appropriate) [ ] XI. Cardiac ischemia beyond scope of emergency and observation care. [ ] XII. Hypertension requiring inpatient treatment as indicated by ANY ONE of the following (6)(7)(8) [ ]a) SBP greater than 220 mm Hg or DBP greater than 120 mmHg despite treatment [ ]b) SBP greater than 140 mm Hg or DBP greater than 100 mm Hg with evidence of acute end organ damage as indicated by ANY ONE of the following [ ] i) Encephalopathy [ ] ii) Acute renal failure as indicated by new onset of ANY ONE of the following (9)(10)(11)(12)(13) [ ]1) 3-fold rise in serum creatinine from baseline [ ]2) Serum creatinine greater than 4 mg/dL ( 354 micromoles/L) with acute rise greater than 0.5 mg/dL (44.2 micromoles/L) [ ]3) Reduction of more than 75% in estimated glomerular filtration rate from baseline [ ]4) Estimated glomerular filtration rate less than 35 mL/min/1.73m2 (0.59 mL/sec/1.73m2) in child up to 18 years of age [ ]5) Cessation of urine output indicated by ALL of the following [ ]A. Adequate volume status [ ]B. Inadequate urine output as indicated by ANY ONE of the following [ ]a. Urine output less than 0.3 mL/kg/hr for 24 hours [ ]b. Anuria (urine output less than 0.1 mL/kg/hr) for 12 hours [ ] iii) Aortic dissection [ ] iv) Myocardial Ischemia [ ] v) Left ventricular heart failure [ ]vi) Retinal Hemorrhage [ ]vii) Other significant finding [ ]c) Hypertension in child requiring inpatient treatment as indicated by ALL of the following(14)(15)(16) [ ] i) Outpatient treatment not effective, not available, or not appropriate [ ]ii) SBP or DBP greater than 95th percentile for age [ ]iii) Evidence of acute end organ damage as indicated by ANY ONE of the following [ ]1) Altered mental status [ ]2) Acute renal failure as indicated by new onset of ANY ONE of the following(9)(10)(11)(12)(13) [ ]A. 3-fold rise in serum creatinine from baseline [ ]B. Serum creatinine greater than 4 mg/dL (354 micromoles/L) with acute rise greater than 0.5 mg/dL (44.2 micromoles/L) [ ]C. Reduction of more than 75% in estimated glomerular filtration rate from baseline [ ]D. Estimated glomerular filtration rate less than 35 mL/min/1.73m2 (0.59 mL/sec/1.73m2) in child up to 18 years of age [ ]E. Cessation of urine output indicated by ALL of the following [ ]a. Adequate volume status [ ]b. Inadequate urine output as indicated by ANY ONE of the following [ ]i) Urine output less than 0.3 mL/kg/hr for 24 hours [ ]ii) Anuria ( urine output less than 0.1 mL/kg/hr) for 12 hours [ ]3) Severe headache [ ]4) Visual disturbance [ ]5) Retinal hemorrhage [ ]6) Other significant finding [ ]XIII. Complications of transplanted heart indicated by ANY ONE of the following(61): [ ]a) Acute graft rejection requiring inpatient management (eg, intravenous immunosuppression)(62)(63) [ ]b) Acute graft heart failure indicated by ANY ONE of the following(64): [ ]i) Hemodynamic instability [ ]ii) Cardiac arrhythmias of immediate concern [ ]iii) Pulmonary edema that is very severe (eg, mechanical ventilation needed, imminent or likely, need for 100% oxygen to keep oxygen saturation above 90%) [ ]iv) Pulmonary edema that is persistent as indicated by ALL of the following: [ ]1) New need for oxygen therapy to keep oxygen saturation above 90% (or increased FiO2 need from baseline) [ ]2) Has not improved sufficiently with emergency department or observation care IV diuretics or other heart failure treatments[E] [ ]v) Altered mental status that is severe or persistent [ ]vi) Increased creatinine (new on laboratory test) with reduction of more than 50% in estimated glomerular filtration rate from baseline [ ]vii) Progressively (ongoing) rising creatinine (known from past laboratory test) with reduction of more than 25% in estimated glomerular filtration rate from baseline [ ]viii) Acute renal failure [ ]ix) Acute peripheral ischemia (eg, examination shows pulseless, cool, mottled, or cyanotic extremity) [ ]x) Pulmonary artery catheter monitoring needed [ ]xi) Other sign or symptom of heart failure requiring inpatient treatment (ie, too severe or not responsive to outpatient and observation care treatment) [ ]c) Infection requiring inpatient management (eg, Hemodynamic instability, need for intravenous antimicrobial treatment)(66)(67)(68)(69)(70) [ ]d) Cardiac allograft vasculopathy requiring inpatient management ( eg evidence of cardiac ischemia)(71) [ ]e) Other complication of transplanted heart (eg, stroke, severe pulmonary hypertension, severe valvular dysfunction) requiring inpatient management(72) The original [facility] content created by [facility] has been revised. The portions of the content which have been revised are identified through the use of italic text or in bold, and [facility] has neither reviewed nor approved the modified material. All other unmodified content is copyright [facility]. Please see references footnoted in the original [facility] edition 2016 Admission Criteria Met?: Yes TOR VELASQUEZ Aug 11, 2016 00:15
[2016-08-11] MEDS ORDERED: ONDANSETRON PF 4 MG/2 ML VIAL. IV PRN (01:30)
[2016-08-11] MEDS: MORPHINE SULFATE 2 MG/ML DISP.SYRIN. IV PRN ×3 (02:01→07:26)
[2016-08-11 03:00] VITALS: BP 125/59
--- NOTE | 2016-08-11 06:08 | EKG ---
[facility] [address] [place] [address] Test Date: 2016-08-10 Test Time: 20:28:00 Pat Name: TL CHAIDEZ Department: Room: Gender: M Felt Puller: : 1955 Requested By: ASAF GROSSMAN Order Number: [id number] Reading MD: Measurements Intervals [place] Rate: 83 P: 90 MI: 170 QRS: 71 QRSD: 92 T: 124 QT: 394 QTc: 469 Interpretive Statements SINUS RHYTHM S1,S2,S3 PATTERN QRS(T) CONTOUR ABNORMALITY CONSIDER ANTEROSEPTAL MYOCARDIAL DAMAGE T ABNORMALITY IN LATERAL LEADS RI6.01 Unconfirmed report No previous ECG available for comparison
--- NOTE | 2016-08-11 06:08 | EKG ---
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
[2016-08-11 07:00] VITALS: BP 93/54
--- NOTE | 2016-08-11 07:28 | RAD ---
Portable chest, 08/10/2016: History: Chest pain, shortness of breath Comparison is made to a study from 07/15/2016. The heart size and pulmonary vascularity are normal. There is calcific plaquing of the aorta. There is minimal parenchymal scarring. No acute infiltrate is seen. There is no evidence of pleural fluid. IMPRESSION: No acute cardiopulmonary abnormality is detected.
[2016-08-11] MEDS ORDERED: NPH HUMAN INSULIN ISOPHANE SQ SCH (07:30)
[2016-08-11] MEDS ORDERED: ALBUTEROL SULFATE 2.5 MG/3 ML NEBU. NEB SCH (08:00)
[2016-08-11] MEDS ORDERED: BUDESONIDE 0.5 MG/2 ML NEBU. NEB SCH (08:00)
[2016-08-11] MEDS ORDERED: INSULIN ASPART 300 UNITS/3 ML INSULN.PEN SQ SCH ×2 (08:00→09:00)
--- NOTE | 2016-08-11 08:08 | PDOC1 ---
History and Physical Date of Admission Date of Admission DATE: 08/11/16 TIME: 08:01 Identification/Chief Complaint Chief Complaint CP - LATE ENTRY,. PT WAS SEEN LAST NIGHT AT ER, then PT TOLD US HIS PCP WS DR. GALAN. ORDERS PUT IN,. ONLY TO REALIZE THIS AM THAT HE LAST SAW PCP MAYBE A YR OR 2 AGO. 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 DISCUSSED WITH DR. LIM Problems: Source Source: Caregiver, Chart review, Patient History of Present Illness History of Present Illness 60 y./o male, hx CAD with PCI 2007, comes in with CP at rest, radiation to left arm and left scapula back area, Claims similar to CP he had when he had the NV. Looks still uncomfortable in ER. Trops neg first set but EKG some T wave inversions V5 and V6,. VS so far ok. COnsult put out to cards, NO identifiable precipitating or alleviating factors. SOme soa, no diaphoresis. REst of hx limited as pt still uncomfortable. Claims compliance with home meds Past Medical History Cardiovascular: CAD, HTN, Hyperlipidemia Musculoskeletal: low back pain Endocrine: Diabetes Past Surgical History Past Surgical History: Other Family History Family History: Hypertension Social History Smoke: No ALCOHOL: none Drugs: None Current Medications Current Medications Current Medications Morphine Sulfate 2 mg PRN Q15MIN PRN IV/SQ PAIN GREATER THAN 3/10 Last administered on 08/10/16 22:45; Start 08/10/16 at 20:45; Stop 08/11/16 at 20:44 Ondansetron HCl (Zofran) 4 mg 1X ONCE IV Last administered on 08/10/16 21:03 ; Start 08/10/16 at 20:45; Stop 08/10/16 at 20:46; Status DC Magnesium Sulfate/ Dextrose 50 ml @ 25 mls/hr 1X ONCE IV Last administered on 08/10/16 22:21; Start 08/10/16 at 22:00; Stop 08/10/16 at 23:59; Status DC Ondansetron HCl (Zofran) 4 mg PRN Q6HRS PRN IV NAUSEA/VOMITING; Start 08/10/16 at 22:00; Status Cancel Prochlorperazine Edisylate (Compazine) 10 mg PRN Q6HRS PRN IV NAUSEA/VOMITING; Start 08/10/16 at 22:00; Status Cancel Prochlorperazine (Compazine) 25 mg PRN Q12HR PRN WV NAUSEA/VOMITING; Start at 22:00; Status Cancel Al Hydroxide/Mg Hydroxide (Mylanta Plus Xs) 30 ml PRN Q3HRS PRN PO HEARTBURN / GAS; Start 08/10/16 at 22:00; Status Cancel Calcium Carbonate/ Glycine (Tums) 500 mg PRN Q3HRS PRN PO UPSET STOMACH; Start 08/10/16 at 22:00; Status Cancel Morphine Sulfate 2 mg PRN Q2HR PRN IV PAIN; Start 08/10/16 at 22:00; Status Cancel Oxycodone/ Acetaminophen (Percocet 5/325) 1 tab PRN Q4HRS PRN PO MILD PAIN, 2ND CHOICE; Start 08/10/16 at 22:00; Status Cancel Acetaminophen (Tylenol) 650 mg PRN Q6HRS PRN PO Headaches, Temp > 101.5F; Start 08/10/16 at 22:00; Status Cancel Docusate Sodium (Colace) 100 mg BID PO ; Start 08/11/16 at 09:00; Status Cancel Magnesium Hydroxide (Milk Of Magnesia) 2,400 mg PRN Q12HR PRN PO CONSTIPATION; Start 08/10/16 at 22:00; Status Cancel Lactulose 20 gm PRN Q12HR PRN PO CONSTIPATION; Start 08/10/16 at 22:00; Status Cancel Bisacodyl (Dulcolax Supp) 10 mg PRN DAILY PRN WV CONSTIPATION; Start 08/10/16 at 22:00; Status Cancel Aspirin (Ecotrin) 81 mg DAILY PO ; Start 08/11/16 at 09:00; Status Cancel Clopidogrel Bisulfate (Plavix) 75 mg DAILY PO ; Start 08/11/16 at 09:00; Status Cancel Lisinopril (Prinivil) 5 mg DAILY PO ; Start 08/11/16 at 09:00; Status Cancel Metformin HCl (Glucophage) 1,000 mg BIDWMEALS PO ; Start 08/11/16 at 08:00; Status Cancel Metoprolol Tartrate (Lopressor) 25 mg BID PO ; Start 08/10/16 at 22:15; Stop at 00:52; Status DC Sertraline HCl (Zoloft) 25 mg DAILY PO ; Start 08/11/16 at 09:00; Status Cancel Tamsulosin HCl (Flomax) 0.4 mg QHS PO Last administered on 08/10/16 22:16; Start 08/10/16 at 22:15; Stop 08/11/16 at 00:52; Status DC Non-Formulary Medication 2 puff BID IH ; Start 08/11/16 at 09:00; Status UNV Gabapentin (Neurontin) 300 mg Q6HRS PO ; Start 08/11/16 at 00:00; Stop 08/11/16 at 00:52; Status DC Insulin Detemir (Levemir) 45 units HS SQ Last administered on 08/10/16 22:49; Start 08/10/16 at 22:45; Stop 08/11/16 at 00:52; Status DC Non-Formulary Medication 10 unit TIDAC SQ ; Start 08/11/16 at 07:30; Status UNV Insulin Aspart (NovoLOG) 0-9 UNITS TIDWMEALS SQ ; Start 08/11/16 at 08:00; Status Cancel Dextrose (Dextrose 50%-Water Syringe) 12.5 gm PRN Q15MIN PRN IV SEE COMMENTS; Start 08/10/16 at 22:00; Status Cancel Morphine Sulfate 4 mg 1X ONCE IV Last administered on 08/10/16 23:40; Start 08/10/16 at 23:45; Stop 08/10/16 at 23:46; Status DC Morphine Sulfate 10 mg STK-MED ONCE .ROUTE ; Start 08/10/16 at 23:35; Stop 08/10 at 23:36; Status Cancel Budesonide (Pulmicort) 0.5 mg RTBID NEB ; Start 08/11/16 at 08:00; Status Cancel Albuterol Sulfate (Ventolin Neb Soln) 2.5 mg RTQID NEB ; Start 08/11/16 at 08:00 ; Status Cancel Morphine Sulfate 2 mg PRN Q2HR PRN IV PAIN Last administered on 08/11/16 07:26 ; Start 08/11/16 at 01:30 Ondansetron HCl (Zofran) 4 mg PRN Q6HRS PRN IV NAUSEA/VOMITING; Start 08/11/16 at 01:30 Active Scripts Active Reported Lisinopril 10 Mg Tablet 1 Tab PO DAILY Aspir 81 (Aspirin) 81 Mg Tablet.dr 1 Tab PO DAILY Zoloft (Sertraline Hcl) 25 Mg Tablet 25 Mg PO DAILY Clopidogrel (Clopidogrel Bisulfate) 75 Mg Tablet 1 Tab PO DAILY Lantus (Insulin Glargine,Hum.rec.anlog) 100 Unit/1 Ml Vial 45 Unit SQ HS Metoprolol Tartrate 25 Mg Tablet 25 Mg PO BID Gabapentin 300 Mg Capsule 300 Mg PO Q6HRS Flomax (Tamsulosin Hcl) 0.4 Mg Cap.er.24h 0.4 Mg PO QHS Metformin Hcl 1,000 Mg Tablet 1,000 Mg PO BIDWMEALS Allergies Allergies: Coded Allergies: Iodinated Contrast- Oral and IV Dye (Verified Allergy, Severe, "Breathing issues", 08/11/16) nitroglycerin (Verified Allergy, Severe, "Pretty much unresponsive right away", 03/05/15) Low blood pressure Penicillins (Verified Allergy, Intermediate, Hives , 02/18/15) codeine (Verified Allergy, Intermediate, 07/15/16) fentanyl (Verified Allergy, Intermediate, rash, 02/18/15) ketorolac (Verified Allergy, Intermediate, 07/15/16) methylprednisolone (Verified Allergy, Intermediate, 07/15/16) ROS General: No: Chills, Night Sweats, Fatigue, Malaise, Appetite, Other PSYCHOLOGICAL ROS: No: Anxiety, Behavioral Disorder, Concentration difficultie , Decreased libido, Depression, Disorientation, Hallucinations, Hostility, Irritablity, Memory difficulties, Mood Swings, Obsessive thoughts, Physical abuse, Sexual abuse, Sleep disturbances, Suicidal ideation, Other Eyes: No Blurry vision, No Decreased vision, No Double vision, No Dry eyes, No Excessive tearing, No Eye Pain, No Itchy Eyes, No Loss of vision, No Photophobia , No Scotomata, No Uses contacts, No Uses glasses, No Other HEENT: No: Heacaches, Visual Changes, Hearing change, Nasal congestion, Nasal discharge, Oral lesions, Sinus pain, Sore Throat, Epistaxis, Sneezing, Snoring, Tinnitus, Vertigo, Vocal changes, Other ALLERGY AND IMMUNOLOGY: No: Hives, Insect Bite Sensitivity, Itchy/Watery Eyes, Nasal Congestion, Post Nasal Drip, Seasonal Allergies, Other Hematological and Lymphatic: No: Bleeding Problems, Blood Clots, Blood Transfusions, Brusing, Night Sweats, Pallor, Swollen Lymph Nodes, Other ENDOCRINE: No: Breast Changes, Galactorrhea, Hair Pattern Changes, Hot Flashes , Malaise/lethargy, Mood Swings, Palpitations, Polydipsia/polyuria, Skin Changes , Temperature Intolerance, Unexpected Weight Changes, Other Breast: No New/Changing Breast Lumps, No Nipple changes, No Nipple discharge, No Other Respiratory: YES: Shortness of breath, No: Cough, Hemoptysis, Orthopnea, Pleuritic Pain, SOB with excertion, Sputum Changes, Stridor, Tachypnea, Wheezing, Other Cardiovascular: yes Chest Pain Gastrointestinal: No Nausea, No Vomiting, No Abdominal Pain, No Diarrhea, No Constipation, No Melena, No Hematochezia, No Other Genitourinary: No Dysuria, No Frequency, No Incontinence, No Hematuria, No Retention, No Discharge, No Urgency, No Pain, No Flank Pain, No Other, No , No , No , No , No , No , No Musculoskeletal: No Gait Disturbance, No Joint Pain, No Joint Stiffness, No Joint Swelling, No Muscle Pain, No Muscular Weakness, No Pain In:, No Swelling In:, No Other Neurological: No Behavorial Changes, No Bowel/Bladder ControlChng, No Confusion , No Dizziness, No Gait Disturbance, No Headaches, No Impaired Coord/balance, No Memory Loss, No Numbness/Tingling, No Seizures, No Speech Problems, No Tremors, No Visual Changes, No Weakness, No Other Skin: No Dry Skin, No Eczema, No Hair Changes, No Lumps, No Mole Changes, No Mottling, No Nail Changes, No Pruritus, No Rash, No Skin Lesion Changes, No Other, No Acne Physical Exam General: Alert, Oriented X3, Cooperative, No acute distress, Other (moderately uncomfortable from on going chest pain) HEENT: Atraumatic, PERRLA, EOMI Lungs: Clear to auscultation, Normal air movement Heart: S1S2, RRR, no thrills, no rubs, no gallops Cardiovascular: S1, S2 Breasts: Normal, Rt breast nml w/o mass, Lt breast nml w/o mass, Nipples normal Abdomen: Normal bowel sounds, Soft, No tenderness, No hepatosplenomegaly, No masses Male Genitals Exam: normal genitalia, normal prostate Rectal Exam: not examined Extremities: No clubbing, No cyanosis, No edema, Normal pulses, No tenderness/ swelling Skin: No rashes, No breakdown, No significant lesion Neuro: Normal gait, Normal speech, Strength at 5/5 X4 ext, Normal tone, Sensation intact, Cranial nerves 3-12 NL, Reflexes 2+ Psych/Mental Status: Mental status NL, Mood NL Vitals Vitals Vital Signs Date Time Temp Pulse Resp B/P (MAP) Pulse Ox O2 Delivery O2 Flow Rate FiO2 08/11/16 07:26 Room Air 08/11/16 04:32 18 92 2.0 08/11/16 03:00 97.5 88 125/59 (81) 97.5 Labs Labs Laboratory Tests Test 08/10/16 20:50 08/10/16 20:55 08/11/16 06:55 White Blood Count 8.3 x10^3/uL (4.0-11.0) Red Blood Count 4.71 x10^6/uL (4.30-5.70) Hemoglobin 12.5 g/dL (13.0-17.5) Hematocrit 37.4 % (39.0-53.0) Mean Corpuscular Volume 80 fL (79-100) Mean Corpuscular Hemoglobin 27 pg (25-35) Mean Corpuscular Hemoglobin Concent 33 g/dL (31-37) Red Cell Distribution Width 16.4 % (11.5-14.5) Platelet Count 368 x10^3/uL (140-400) Neutrophils (%) (Auto) 47 % (31-73) Lymphocytes (%) (Auto) 38 % (24-48) Monocytes (%) (Auto) 6 % (0-9) Eosinophils (%) (Auto) 9 % (0-3) Basophils (%) (Auto) 0 % (0-3) Neutrophils # (Auto) 3.9 x10^3uL (1.8-7.7) Lymphocytes # (Auto) 3.2 x10^3/uL (1.0-4.8) Monocytes # (Auto) 0.5 x10^3/uL (0.0-1.1) Eosinophils # (Auto) 0.7 x10^3/uL (0.0-0.7) Basophils # (Auto) 0.0 x10^3/uL (0.0-0.2) Prothrombin Time 12.7 SEC (11.7-14.0) Prothromb Time International Ratio 1.0 (0.8-1.1) Sodium Level 140 mmol/L (136-145) Potassium Level 4.1 mmol/L (3.5-5.1) Chloride Level 102 mmol/L (98-107) Carbon Dioxide Level 28 mmol/L (21-32) Anion Gap 10 (6-14) Blood Urea Nitrogen 10 mg/dL (8-26) Creatinine 0.8 mg/dL (0.7-1.3) Estimated GFR (Cockcroft-Gault) 98.3 Glucose Level 189 mg/dL (70-99) Calcium Level 9.0 mg/dL (8.5-10.1) Magnesium Level 1.6 mg/dL (1.8-2.4) Total Bilirubin 0.2 mg/dL (0.2-1.0) Direct Bilirubin < 0.1 mg/dL (0.0-0.2) Aspartate Amino Transf (AST/SGOT) 15 U/L (15-37) Alanine Aminotransferase (ALT/SGPT) 21 U/L (16-63) Alkaline Phosphatase 91 U/L (46-116) Creatine Kinase 93 U/L (39-308) Creatine Kinase MB (Mass) 2.9 ng/mL (0.0-3.6) Creatine Kinase MB Relative Index 3.1 % (0-4) Troponin I Quantitative < 0.017 ng/mL (0.000-0.055) < 0.017 ng/mL (0.000-0.055) QO-Lmm-K-Type Natriuretic Peptide 419 pg/mL (0-124) Total Protein 7.3 g/dL (6.4-8.2) Albumin 3.5 g/dL (3.4-5.0) Bedside Troponin I 0.01 ng/ml (<0.08) Laboratory Tests Test 08/10/16 20:50 08/10/16 20:55 08/11/16 06:55 White Blood Count 8.3 x10^3/uL (4.0-11.0) Red Blood Count 4.71 x10^6/uL (4.30-5.70) Hemoglobin 12.5 g/dL (13.0-17.5) Hematocrit 37.4 % (39.0-53.0) Mean Corpuscular Volume 80 fL (79-100) Mean Corpuscular Hemoglobin 27 pg (25-35) Mean Corpuscular Hemoglobin Concent 33 g/dL (31-37) Red Cell Distribution Width 16.4 % (11.5-14.5) Platelet Count 368 x10^3/uL (140-400) Neutrophils (%) (Auto) 47 % (31-73) Lymphocytes (%) (Auto) 38 % (24-48) Monocytes (%) (Auto) 6 % (0-9) Eosinophils (%) (Auto) 9 % (0-3) Basophils (%) (Auto) 0 % (0-3) Neutrophils # (Auto) 3.9 x10^3uL (1.8-7.7) Lymphocytes # (Auto) 3.2 x10^3/uL (1.0-4.8) Monocytes # (Auto) 0.5 x10^3/uL (0.0-1.1) Eosinophils # (Auto) 0.7 x10^3/uL (0.0-0.7) Basophils # (Auto) 0.0 x10^3/uL (0.0-0.2) Prothrombin Time 12.7 SEC (11.7-14.0) Prothromb Time International Ratio 1.0 (0.8-1.1) Sodium Level 140 mmol/L (136-145) Potassium Level 4.1 mmol/L (3.5-5.1) Chloride Level 102 mmol/L (98-107) Carbon Dioxide Level 28 mmol/L (21-32) Anion Gap 10 (6-14) Blood Urea Nitrogen 10 mg/dL (8-26) Creatinine 0.8 mg/dL (0.7-1.3) Estimated GFR (Cockcroft-Gault) 98.3 Glucose Level 189 mg/dL (70-99) Calcium Level 9.0 mg/dL (8.5-10.1) Magnesium Level 1.6 mg/dL (1.8-2.4) Total Bilirubin 0.2 mg/dL (0.2-1.0) Direct Bilirubin < 0.1 mg/dL (0.0-0.2) Aspartate Amino Transf (AST/SGOT) 15 U/L (15-37) Alanine Aminotransferase (ALT/SGPT) 21 U/L (16-63) Alkaline Phosphatase 91 U/L (46-116) Creatine Kinase 93 U/L (39-308) Creatine Kinase MB (Mass) 2.9 ng/mL (0.0-3.6) Creatine Kinase MB Relative Index 3.1 % (0-4) Troponin I Quantitative < 0.017 ng/mL (0.000-0.055) < 0.017 ng/mL (0.000-0.055) BL-Zvw-W-Type Natriuretic Peptide 419 pg/mL (0-124) Total Protein 7.3 g/dL (6.4-8.2) Albumin 3.5 g/dL (3.4-5.0) Bedside Troponin I 0.01 ng/ml (<0.08) VTE Prophylaxis Ordered VTE Prophylaxis Devices: Yes VTE Pharmacological Prophylaxi: Yes Assessment/Plan Assessment/Plan 1. CHest pain, concerning for unstable angina, hx CAD with PCI x 1 2007 2. 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 HTN 4. ALlergy to NTG PLAn: Admit CVC Cards consult Cycle CE Stool softener Resume home meds Check [id number] SSI Morphine now, LYNN O2 If no resolve CP with morphine, need to call cards- claims anaphylaxis to NTG SL Seen last night at ER Dw LOULOU Ross MD Aug 11, 2016 08:08
--- NOTE | 2016-08-11 08:10 | PDOC ---
Provider Note Provider Note Pt now wanting to leave AMA - before Dr. Garcia could see today - no dc summ needed Jose Francisco Rn LOULOU Bustillo MD Aug 11, 2016 08:10
[2016-08-11] MEDS ORDERED: DEXTROSE 50% 25 GM / 50ML DISP.SYRIN. IV PRN (08:15)
[2016-08-11] MEDS ORDERED: SERTRALINE 25 MG TABLET. PO SCH (09:00)
[2016-08-11] MEDS ORDERED: DOCUSATE SODIUM 100 MG CAPSULE. PO SCH (09:00)
[2016-08-11] MEDS ORDERED: NON FORMULARY ITEM (Budesonide/Formoterol Fumarate (Symbicort 80-4.5 Mcg Inhaler) 2 PUFF) IH SCH (09:00)
[2016-08-11] MEDS ORDERED: CLOPIDOGREL BISULFATE 75 MG TABLET PO SCH (09:00)
[2016-08-11] MEDS ORDERED: LISINOPRIL 10 MG TABLET PO SCH (09:00)
[2016-08-11] MEDS ORDERED: ASPIRIN ENTERIC COATED 81 MG TABLET.DR. PO SCH (09:00)
[2016-08-11] MEDS ORDERED: LISINOPRIL 5 MG TABLET. PO SCH (09:00)
--- NOTE | 2016-08-12 00:03 | DS ---
DATE OF DISCHARGE: 08/11/2016 CHIEF COMPLAINT: Chest pain. HOSPITAL COURSE: The patient was admitted for chest pain, but left AMA prior to being seen by physician. DISCHARGE DATE: 08/11/2016 DISCHARGE DIAGNOSIS: Chest pain. DISCHARGE DISPOSITION: AMA. GEOVANY MELO MD DR: GAMALIEL/heather JOB#: [id number] / [id number] KRYSTIAN
== END 2016-08-11 08:16 | disposition left against medical advice (07) | DRG 313 ==
LOC: ER 20:18 → 5 NORTH 22:00
PROVIDERS: ADMIT Internal Medicine; ATTEND Internal Medicine
DX: R07.9 Chest pain, unspecified (principal); E78.5 Hyperlipidemia, unspecified; I11.0 Hypertensive heart disease with heart failure; E11.40 Type 2 diabetes mellitus with diabetic neuropathy, unspecified; I25.10 Atherosclerotic heart disease of native coronary artery without angina pectoris; I50.9 Heart failure, unspecified; Z79.4 Long term (current) use of insulin; Z82.49 Family history of ischemic heart disease and other diseases of the circulatory system; Z86.73 Personal history of transient ischemic attack (TIA), and cerebral infarction without residual deficits; Z95.5 Presence of coronary angioplasty implant and graft; I25.2 Old myocardial infarction; Z88.5 Allergy status to narcotic agent; Z88.0 Allergy status to penicillin; Z88.8 Allergy status to other drugs, medicaments and biological substances; Z88.6 Allergy status to analgesic agent; Z91.041 Radiographic dye allergy status; Z79.899 Other long term (current) drug therapy; Z79.1 Long term (current) use of non-steroidal anti-inflammatories (NSAID); Z79.891 Long term (current) use of opiate analgesic
CPT/HCPCS: 36415; 71010; 80048; 80076; 82553; 83735; 83880; 84484; 85027; 85610; 93005; 96365; 96372; 96375; 96376; J1815; J2270; J2405; J7060; 99285-25

== ENCOUNTER 2019-04-23 14:31 | Emergency (ER) | payer MEDICAID, MEDICARE ==
[~2019-04-23] VITALS: Ht 177.8 cm; Wt 72.7 kg
[~2019-04-23 14:31] MED LIST changes: +ATOR20TA58 PO; -GABA-586 PO; +GABA300C18 PO; +INSU100C SQ; +LISI10TA2 PO; -METF-620 PO; +METF10007 PO; +METF500T16 PO; +OMEP20CA16 PO; -OMEP20CA9 PO
[2019-04-23] MEDS ORDERED: MORPHINE SULFATE 2 MG/ML VIAL. IV ONE (15:15)
[2019-04-23] MEDS ORDERED: ONDANSETRON PF 4 MG/2 ML VIAL. IVP ONE (15:15)
--- NOTE | 2019-04-23 15:29 | PHYS DOC ---
Past Medical History Past Medical History: CAD, CHF, COPD, CVA, Diabetes-Type II, DVT, High Cholesterol, Hypertension, CT Past Surgical History: Angioplasty Additional Past Surgical Histo: Left ankle, exploritory abd, cardiac stent Smoking Status: Current Every Day Smoker Alcohol Use: None Drug Use: None Adult General Chief Complaint Chief Complaint: CHEST PAIN [facility] HPI Patient is a 63 year old with history of hypertension, dyslipidemia, diabetes mellitus, coronary artery disease status post angioplasty, CVA, COPD, CHF, frequent hospitalization for chest pain who presents with complaint of chest pain. Patient complaining of sudden onset of nonexertional left side pressure chest pain that started about 30 minutes prior to arrival to ER as a constant pain without radiation and rated his pain 10 over 10. Patient complaining of shortness of breath and nausea without dizziness, palpitation, fever and chills, cough and congestion, vomiting and diarrhea, urinary symptom. Patient states his pain was the same as his previous chest pain and has history of cardiac problem. Patient states he took 4 baby aspirin and because of allergy to nitroglycerin was not able to take nitroglycerin. Review of Systems Review of Systems Constitutional: Denies fever or chills [] Eyes: Denies change in visual acuity, redness, or eye pain [] HENT: Denies nasal congestion or sore throat [] Respiratory: Denies cough, reports shortness of breath [] Cardiovascular: No additional information not addressed in HPI [] GI: Denies abdominal pain, vomiting, bloody stools or diarrhea , reports nausea[] : Denies dysuria or hematuria [] Musculoskeletal: Denies back pain or joint pain [] Integument: Denies rash or skin lesions [] Neurologic: Denies headache, focal weakness or sensory changes [] Endocrine: Denies polyuria or polydipsia [] All other systems were reviewed and found to be within normal limits, except as documented in this note. Current Medications Current Medications Current Medications Medications (Trade) Dose Ordered Sig/Tamela Start Time Stop Time Status Last Admin Dose Admin Morphine Sulfate (Morphine Sulfate) 2 mg 1X ONCE 04/23/19 15:15 04/23/19 15:16 DC 04/23/19 15:54 2 MG Ondansetron HCl (Zofran) 4 mg 1X ONCE 04/23/19 15:15 04/23/19 15:16 DC 04/23/19 15:54 4 MG Allergies Allergies Allergies Coded Allergies Type Severity Reaction Last Updated Verified Iodinated Contrast Media Allergy Severe "Breathing issues" 08/11/16 Yes nitroglycerin Allergy Severe "Pretty much unresponsive right away" 03/05/15 Yes Penicillins Allergy Intermediate Hives 02/18/15 Yes codeine Allergy Intermediate 07/15/16 Yes fentanyl Allergy Intermediate rash 02/18/15 Yes ketorolac Allergy Intermediate 07/15/16 Yes methylprednisolone Allergy Intermediate 07/15/16 Yes oxycodone Allergy Intermediate 08/13/16 Yes Physical Exam Physical Exam Constitutional: Well developed, well nourished, no acute distress, non-toxic appearance. [] HENT: Normocephalic, atraumatic. Eyes: PERRLA, EOMI, conjunctiva normal, no discharge. [] Neck: Normal range of motion, no tenderness, supple, no stridor. [] Cardiovascular:Heart rate regular rhythm, no murmur [] Lungs & Thorax: Bilateral breath sounds clear to auscultation [] Abdomen: Bowel sounds normal, soft, no tenderness, no masses, no pulsatile masses. [] Skin: Warm, dry, no erythema, no rash. [] Back: No tenderness, no CVA tenderness. [] Extremities: No tenderness, no cyanosis, no clubbing, ROM intact, no edema. [] Neurologic: Alert and oriented X 3, no focal deficits noted. [] Psychologic: Affect anxious, judgement normal, mood normal. [] Current Patient Data Vital Signs Vital Signs Date Time Temp Pulse Resp B/P (MAP) Pulse Ox O2 Delivery O2 Flow Rate FiO2 04/23/19 15:54 19 97 Room Air Lab Values Laboratory Tests Test 04/23/19 15:46 04/23/19 16:20 Sodium Level 134 mmol/L (136-145) L Potassium Level 3.8 mmol/L (3.5-5.1) Chloride Level 101 mmol/L (98-107) Carbon Dioxide Level 23 mmol/L (21-32) Anion Gap 10 (6-14) Blood Urea Nitrogen 5 mg/dL (8-26) L Creatinine 0.7 mg/dL (0.7-1.3) Estimated GFR (Cockcroft-Gault) 113.5 BUN/Creatinine Ratio 7 (6-20) Glucose Level 301 mg/dL (70-99) H Calcium Level 8.7 mg/dL (8.5-10.1) Magnesium Level 1.4 mg/dL (1.8-2.4) L Total Bilirubin 0.4 mg/dL (0.2-1.0) Aspartate Amino Transferase (AST) 13 U/L (15-37) L Alanine Aminotransferase (ALT) 14 U/L (16-63) L Alkaline Phosphatase 110 U/L (46-116) Creatine Kinase 110 U/L (39-308) Troponin I Quantitative < 0.017 ng/mL (0.000-0.055) QF-Yge-Z-Type Natriuretic Peptide 1525 pg/mL (0-124) H Total Protein 6.5 g/dL (6.4-8.2) Albumin 3.2 g/dL (3.4-5.0) L Albumin/Globulin Ratio 1.0 (1.0-1.7) Lipase 64 U/L (73-393) L White Blood Count 10.6 x10^3/uL (4.0-11.0) Red Blood Count 4.61 x10^6/uL (4.30-5.70) Hemoglobin 9.6 g/dL (13.0-17.5) L Hematocrit 30.2 % (39.0-53.0) L Mean Corpuscular Volume 66 fL (79-100) L Mean Corpuscular Hemoglobin 21 pg (25-35) L Mean Corpuscular Hemoglobin Concent 32 g/dL (31-37) Red Cell Distribution Width 18.1 % (11.5-14.5) H Platelet Count 469 x10^3/uL (140-400) H Neutrophils (%) (Auto) 92 % (31-73) H Lymphocytes (%) (Auto) 6 % (24-48) L Monocytes (%) (Auto) 2 % (0-9) Eosinophils (%) (Auto) 0 % (0-3) Basophils (%) (Auto) 1 % (0-3) Neutrophils # (Auto) 9.7 x10^3/uL (1.8-7.7) H Lymphocytes # (Auto) 0.6 x10^3/uL (1.0-4.8) L Monocytes # (Auto) 0.2 x10^3/uL (0.0-1.1) Eosinophils # (Auto) 0.0 x10^3/uL (0.0-0.7) Basophils # (Auto) 0.1 x10^3/uL (0.0-0.2) Platelet Estimate Pending Laboratory Tests 04/23/19 16:20 Laboratory Tests 04/23/19 15:46 EKG EKG EKG interpreted by me. EKG at 1439 showed normal sinus rhythm at rate of 92, left vela axis, normal CT interval, nonspecific intraventricular block, poor R- wave progress in anteroseptal leads, no acute ST and T-wave elevation, change EKG from 02/01/2019 Radiology/Procedures Radiology/Procedures [facility] [address] [place] [address] IMAGING REPORT Signed PATIENT: TL CHAIDEZ ACCOUNT: [id number] : 1955 LOCATION: ER AGE: 63 SEX: M EXAM STATUS: REG ER ORD. PHYSICIAN: SHIVA PETER MD REASON: chest pain PROCEDURE: PORTABLE CHEST 1V PORTABLE CHEST 1V Clinical indications: Chest pain. COMPARISON: February 22, 2019. Findings: No acute lung infiltrate or pleural effusion or pulmonary edema or lung mass is seen. There is a line of the right apex. This most likely represents a skinfold. The heart size, pulmonary vasculature, mediastinum and both latasha are unremarkable. Impression: Probable skinfold of the right apex. Recommend repeat PA chest x-ray with smoothing out of any skin folds to exclude a pneumothorax. Electronically signed by: Azam Quintero MD (04/23/2019 4:06 PM) [facility] DICTATED and SIGNED BY: AZAM QUINTERO MD DATE: 04/23/19 4708 Course & Med Decision Making Course & Med Decision Making Pertinent Labs and Imaging studies reviewed. (See chart for details) Evaluation of patient in ER showed 63-year-old male patient with heart score of frequent emergency room visits complaining of chest pain that started 3 minutes prior to arrival and rated his pain 10 over 10 when he looked very comfortable. Patient decided to leave AMA and even I told him about magnesium of 1.4 and needs for treatment, he didn't want to have prescription or stay in ER for treatment of hypomagnesemia. Patient was advised to follow up with his primary care physician or return to ER if does not feel better. Dragon Disclaimer Dragon Disclaimer This electronic medical record was generated, in whole or in part, using a voice recognition dictation system. Departure Departure Impression: Primary Impression: Chest pain Additional Impressions: Hypomagnesemia Left against medical advice Uncontrolled diabetes mellitus Disposition: 07 AGAINST MEDICAL ADVICE (at 1640) Condition: STABLE Referrals: UNKNOWN PCP NAME (PCP) The HEART Score for CP Pts HEART Score for Chest Pain: HEART Score for Chest Pain Response (Comments) Value History Slighlty/Non-Suspicious 0 ECG Nonspecific Repolarizatio 1 Age >45 - < 65 1 Risk Factors >3 Risk Factors or Hx CAD 2 Troponin < Normal Limit 0 Total 4 Risk Factors: Risk Factors: DM, Current or recent (<one month) smoker, HTN, HLP, family history of CAD, obesity. Risk Scores: Score 0 - 3: 2.5% MACE over next 6 weeks - Discharge Home Score 4 - 6: 20.3% MACE over next 6 weeks - Admit for Clinical Observation Score 7 - 10: 72.7% MACE over next 6 weeks - Early Invasive Strategies Problem Qualifiers Primary Impression: Chest pain Chest pain type: unspecified Qualified Codes: R07.9 - Chest pain, unspecified Additional Impressions: Uncontrolled diabetes mellitus Diabetes mellitus type: other specified (including JUAN A) Glycemic state: with hyperglycemia Qualified Codes: E13.65 - Other specified diabetes mellitus with hyperglycemia SHIVA PETER MD Apr 23, 2019 15:29
--- NOTE | 2019-04-23 15:53 | EKG ---
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
[2019-04-23 16:03] LABS: CALCIUM 8.7 mg/dL (8.5-10.1); CREATININE 0.7 mg/dL (0.7-1.3); GFR 113.5; POTASSIUM 3.8 mmol/L (3.5-5.1)
[2019-04-23 16:08] LABS: ALBUMIN 3.2 g/dL (3.4-5.0); MAGNESIUM 1.4 mg/dL (1.8-2.4); TOTAL BILIRUBIN 0.4 mg/dL (0.2-1.0); TOTAL PROTEIN 6.5 g/dL (6.4-8.2)
--- NOTE | 2019-04-23 16:09 | RAD ---
PORTABLE CHEST 1V Clinical indications: Chest pain. COMPARISON: February 22, 2019. Findings: No acute lung infiltrate or pleural effusion or pulmonary edema or lung mass is seen. There is a line of the right apex. This most likely represents a skinfold. The heart size, pulmonary vasculature, mediastinum and both latasha are unremarkable. Impression: Probable skinfold of the right apex. Recommend repeat PA chest x-ray with smoothing out of any skin folds to exclude a pneumothorax. Electronically signed by: Evgeny Quintero MD (04/23/2019 4:06 PM) [facility] [place]
[2019-04-23 16:10] VITALS: BP 122/58
[2019-04-23 16:35] LABS: BASO # 0.1 x10^3/uL (0.0-0.2); BASO % 1 % (0-3); EOS % 0 % (0-3); HEMATOCRIT 30.2 % (39.0-53.0); HEMOGLOBIN 9.6 g/dL (13.0-17.5); LYMPH # 0.6 x10^3/uL (1.0-4.8); LYMPH % 6 % (24-48); MEAN CORPUSCULAR HEMOGLOBIN 21 pg (25-35); MEAN CORPUSCULAR HGB CONC 32 g/dL (31-37); MEAN CORPUSCULAR VOLUME 66 fL (79-100); MONO # 0.2 x10^3/uL (0.0-1.1); MONO % 2 % (0-9); NEUT # 9.7 x10^3/uL (1.8-7.7); NEUT % 92 % (31-73); PLATELET COUNT 469 x10^3/uL (140-400); RED BLOOD COUNT 4.61 x10^6/uL (4.30-5.70); RED CELL DISTRIBUTION WIDTH 18.1 % (11.5-14.5); WHITE BLOOD COUNT 10.6 x10^3/uL (4.0-11.0)
[2019-04-23 16:59] LABS: % BANDS 2 % (0-9); % BASOS 1 % (0-3); % EOS 2 % (0-5); % LYMPHS 7 % (24-48); % MONOS 1 % (0-10); % SEGS 87 % (35-66)
[2019-04-23 17:03] LABS: PLT ESTIMATE INCREASED (ADEQUATE)
[2019-04-23 17:04] LABS: ANISOCYTOSIS MOD; OVALOCYTES OCC; POLYCHROMASIA SLIGHT; SCHISTOCYTES FEW; TARGET CELLS OCC; TOXIC GRANULATION SLIGHT
== END 2019-04-23 16:40 | disposition left against medical advice (07) ==
LOC: ER 14:31
DX: R07.89 Other chest pain (principal); E83.42 Hypomagnesemia; E11.65 Type 2 diabetes mellitus with hyperglycemia; I11.0 Hypertensive heart disease with heart failure; I50.9 Heart failure, unspecified; J44.9 Chronic obstructive pulmonary disease, unspecified; E78.00 Pure hypercholesterolemia, unspecified; I25.2 Old myocardial infarction; I25.10 Atherosclerotic heart disease of native coronary artery without angina pectoris; I97.821 Postprocedural cerebrovascular infarction following other surgery; F17.200 Nicotine dependence, unspecified, uncomplicated; Z98.890 Other specified postprocedural states; Z86.718 Personal history of other venous thrombosis and embolism
CPT/HCPCS: 36415; 71045; 80053; 82550; 83690; 83735; 83880; 84484; 85007; 85025; 93005; 96374; 96375; 99285; J2270; J2405